=== PATIENT | male | born 1960 | race Caucasian/White ===

== ENCOUNTER 2019-09-13 15:29 | Emergency (ER) | payer BC, SELFPAY ==
--- NOTE | ~2019-09-13 | XR_ITS ---
EXAMINATION: XR finger 1st RT min 2V EXAM DATE: 09/13/2019 15:55 INDICATION: Initial encounter following injury, with pain of the right thumb. TECHNIQUE: Right 1st finger frontal, lateral and oblique projections obtained and reviewed. Correlat ion is made to right hand exam from 02/24/2018. FINDINGS: There are no acute right 1st finger fractures or dislocations identified. There is no subc utaneous gas. The soft tissue is unremarkable. There are no radiopaque foreign bodies. IMPRESSION: No acute osseous findings. Reviewed, dictated and finalized at location B. IMPRESSION: No acute osseous findings.
--- NOTE | 2019-09-13 15:38 | ED.GENADULT ---
HPI - General Adult General Chief complaint: Wound/Laceration Stated complaint: laceration Time Seen by Provider: 09/13/19 15:45 Source: patient Mode of arrival: ambulatory Limitations: no limitations History of Present Illness HPI narrative: 59-year-old male patient presents to the [facility] with complaints of a laceration to the right thumb. Patient states he was trying to jump a 100 gallon water trough and states that he smashed his thumb in between the trough and a fire hydrant. Patient states he does have pain with movement to the right thumb. Patient is right-hand dominant. Patient states he did cut his thumb. Patient unaware of when his last tetanus shot was. Denies any numbness or tingling at this time. Related Data Home Medications Medication Instructions Recorded Confirmed tamsulosin 0.4 mg capsule 0.4 mg PO DAILY 02/06/19 09/13/19 Allergies Allergy/AdvReac Type Severity Reaction Status Date / Time Sulfa (Sulfonamide Allergy Severe JOINT PAIN Verified 09/13/19 15:46 Antibiotics) erythromycin base Allergy Unknown hives Verified 09/13/19 15:46 trimethoprim Allergy Unknown Unknown Verified 09/13/19 15:46 Review of Systems Review of Systems: Narrative: CONSTITUTIONAL: Denies fever, chills, or sweats. EYES: Denies visual changes, redness, or discharge. ENT: Denies rhinorrhea, congestion, sore throat, or otalgia. CARDIOVASCULAR: Denies chest pain, palpitations, or edema. RESPIRATORY: Denies cough or dyspnea. GASTROINTESTINAL: Denies abdominal pain, nausea, vomiting, or diarrhea. GENITOURINARY: Denies dysuria or hematuria. SKIN: Denies rash or itching. MUSCULOSKELETAL: Denies back pain, joint pain, or myalgia. Positive laceration over right thumb with pain to the right thumb with movement NEUROLOGIC: Denies headache, numbness, or weakness. PSYCHIATRIC: Denies anxiety or depression. FORMERLY [facility] Past Medical History Medical History Osteoarthritis of right knee Surgical History Surgical History H/O knee surgery (~08/27/08) History of foot surgery (~05/12/16) History of hernia surgery (~05/08/05) Vasectomy status (~03/31/10) Family History Family History Father Malignant neoplasm of prostate Hypertension Family history of coronary artery disease Grandparent Family history of lung cancer Other Family history of arthritis Family history of malignant neoplasm Social History Social History Smoking status: Never smoker Alcohol intake: current Drinks per week: 7 Substance use: never Substance use type: does not use Gender identity (if verbalized by the patient): Male Comments At the time of my signature I agree with nursing past medical history, surgical, social, and family history. There is no relevant family history pertinent to the presenting complaint. Exam Narrative: Exam Narrative: GENERAL: Well-appearing, well-nourished, and in no acute distress. HEAD: Normocephalic, atraumatic. EYES: PERRLA and EOMI. ENT: Nares clear, no rhinorrhea or epistaxis. Mucous membranes moist. NECK: Supple. No lymphadenopathy CHEST: Clear to auscultation. No respiratory distress. HEART: Regular rate and rhythm. No murmur heard. Normal peripheral pulses. ABDOMEN: Soft, nontender, nondistended, normal active bowel sounds. EXTREMITIES: The R hand is without obvious asymmetry or deformity when compared to the L hand. No swelling, erythema, atrophy, or obvious deformity. Patient has approximately very centimeter laceration over the DIP joint of the right thumb. Bleeding is controlled. Normal cascade of fingers. Normal flexion and extension of fingers. FDS and FDP intact aganist restistance. No focal fullness, thobbing pain, swelling of right thumb over the DIP joint. tenderness to palpation.
[2019-09-13 15:42] VITALS: BP 157/87; PULSE 98; RESP 16; TEMP 37.3; O2SAT 99
[2019-09-13] MEDS: TETANUS,DIPHTHERIA,AC PERTUSSIS ADULT (0.5 ML) BOOSTRIX IM (15:58)
== END 2019-09-13 16:52 | disposition home or self-care (01) ==
PROVIDERS: Emergency Provider Nurse Practitioner Family; PCP Family Medicine
DX: S61.011A Laceration without foreign body of right thumb without damage to nail, initial encounter (principal); M17.11 Unilateral primary osteoarthritis, right knee; R03.0 Elevated blood-pressure reading, without diagnosis of hypertension; Z23 Encounter for immunization; W23.1XXA Caught, crushed, jammed, or pinched between stationary objects, initial encounter
CPT/HCPCS: 12002; 73140; 90471; 90715; 99213; G0463

== ENCOUNTER 2019-10-03 00:58 | Outpatient (CLI) | payer BC, SELFPAY ==
[2019-10-03 19:25] LABS: SARS-CoV-2 RNA PCR Negative
== END 2019-10-03 00:59 | disposition home or self-care (01) ==
LOC: ANHCOVIDDT 00:59
PROVIDERS: PCP Family Medicine; Visit Provider Internal Medicine Gastroenterology
DX: Z01.812 Encounter for preprocedural laboratory examination (principal); Z11.59 Encounter for screening for other viral diseases
CPT/HCPCS: 87635; C9803; U0003

== ENCOUNTER 2019-10-05 01:00 | Day surgery (SDC) | payer BC, SELFPAY ==
[2019-09-27 14:15] VITALS: BMI 27.3
[2019-10-05 06:14] VITALS: BP 134/86; PULSE 67; RESP 18; TEMP 36.6; O2SAT 100
[2019-10-05] MEDS: LACTATED RINGERS 1,000 ML 150 ML IV CONT (06:31)
--- NOTE | 2019-10-05 06:41 | WPDANESEPPF ---
Anes - Initial Pre Proc Eval Procedure: Operation Date: 10/05/19 07:30 Proposed Procedures p Screening Colonoscopy - Lupillo Pineda MD Date/Time: 10/05/19 06:41 Surgeon: Lupillo Pineda MD Pre Op Diagnosis: Hx Colon Polyps Patient Data Age: 59 Gender: M Height: 5 ft 9 in Weight: 85.2 kg Last Vital Signs Temp 36.6 C 10/05/19 06:14 Pulse 67 10/05/19 06:14 Resp 18 10/05/19 06:14 BP 134/86 10/05/19 06:14 Pulse Ox 100 10/05/19 06:14 Allergies Allergy/AdvReac Type Severity Reaction Status Date / Time Sulfa (Sulfonamide Allergy Severe JOINT PAIN Verified 10/05/19 06:20 Antibiotics) erythromycin base Allergy Unknown hives Verified 10/05/19 06:20 trimethoprim Allergy Unknown Unknown Verified 10/05/19 06:20 Home Medications Medication Instructions Recorded Confirmed Type tamsulosin 0.4 mg capsule 0.4 mg PO HS 02/06/19 10/05/19 History etjjkyii-bidbu-nesku-CF borate 1 tablet PO DAILY 09/27/19 10/05/19 History [[employer] [facility]] loratadine [Claritin] 10 mg PO DAILY 09/27/19 10/05/19 History hiaclhnj-txz-YA-lycopen-lutein 1 tablet PO DAILY 09/27/19 10/05/19 History [Centrum Silver Men] rabeprazole 20 mg PO DAILY 09/27/19 10/05/19 History Patient hx anesthesia problems: none Family hx anesthesia problems: none PMFSH Past Medical History Medical History Osteoarthritis of right knee Surgical History Surgical History H/O knee surgery (~08/27/08) History of foot surgery (~05/12/16) History of hernia surgery (~05/08/05) Vasectomy status (~03/31/10) Family History Family History Father Malignant neoplasm of prostate Hypertension Family history of coronary artery disease Grandparent Family history of lung cancer Other Family history of arthritis Family history of malignant neoplasm Social History Social History Smoking status: Never smoker Alcohol intake: current Drinks per week: 7 Substance use: never Substance use type: does not use Gender identity (if verbalized by the patient): Male Anes - Eval Final PreProcedure Day of Procedure 10/05/19 06:41 Patient weight: normal Heart: regular rate and rhythm Lungs: clear to auscultation Airway: Mallampati scale class II Neurological: alert and oriented Last oral intake: >/= 8 hours ASA classification: II Emergent: no Anesthetic plan: proceed Anesthesia type and monitoring: general GIVS and standard monitoring Informed Consent: The patient's anesthetic plan and its attendant risks and benefits were discussed with the patient/family/POA. Questions were solicited and answers provided to the satisfaction of the patient/family/POA.
--- NOTE | 2019-10-05 06:55 | P.HP_ITS ---
History of Present Illness History of Present Illness Consent: Risks, benefits, and alternatives have been discussed and questions answered. Patient agrees to proceed with procedure. Chief complaint: Hx Colon Polyps Narrative: Geo Jamison is a 59 year old W male For for screening colonoscopy. Patient has history of colonic polyps and his last colonoscopy was 5 years ago. History of colon polyps in his brother patient is asymptomatic. History of esophagitis with gastroscopy approximately a year ago. [facility] Past Medical History Medical History Osteoarthritis of right knee Surgical History Surgical History H/O knee surgery (~08/27/08) History of foot surgery (~05/12/16) History of hernia surgery (~05/08/05) Vasectomy status (~03/31/10) Family History Family History Father Malignant neoplasm of prostate Hypertension Family history of coronary artery disease Grandparent Family history of lung cancer Other Family history of arthritis Family history of malignant neoplasm Social History Social History Smoking status: Never smoker Alcohol intake: current Drinks per week: 7 Substance use: never Substance use type: does not use Gender identity (if verbalized by the patient): Male Meds Home Medications and Allergies Home Medications Medication Instructions Recorded Confirmed Type tamsulosin 0.4 mg capsule 0.4 mg PO HS 02/06/19 10/05/19 History wyfayxki-tpqic-wsloz-CF borate 1 tablet PO DAILY 09/27/19 10/05/19 History [[employer]] loratadine [Claritin] 10 mg PO DAILY 09/27/19 10/05/19 History lnahyrtu-bvf-WR-lycopen-lutein 1 tablet PO DAILY 09/27/19 10/05/19 History [Centrum Silver Men] rabeprazole 20 mg PO DAILY 09/27/19 10/05/19 History Allergies Allergy/AdvReac Type Severity Reaction Status Date / Time Sulfa (Sulfonamide Allergy Severe JOINT PAIN Verified 10/05/19 06:20 Antibiotics) erythromycin base Allergy Unknown hives Verified 10/05/19 06:20 trimethoprim Allergy Unknown Unknown Verified 10/05/19 06:20 Vital Signs Vital Signs - 24 hr 10/05/19 06:14 Temperature 36.6 C Pulse Rate 67 Respiratory Rate 18 Blood Pressure 134/86 Pulse Oximetry 100 Exam Const: Orientation/consciousness: patient oriented x3 Resp: Auscultation: clear to auscultation bilaterally Cardio: Rate: regular rate Rhythm: regular rhythm Heart sounds: no murmurs GI: GI Palp: Yes Soft to palpation, No Tenderness to palpation present (GI), Yes No hepatosplenomegaly present and No Palpable mass present Auscultation: normal bowel sounds Neuro: General: patient oriented x3 and no focal motor deficits Extrem: General: no pedal edema Assessment and Plan Additional Plan Colonoscopy for evaluation of history of colonic polyps
[2019-10-05 07:38] VITALS: BP 111/77; PULSE 70; RESP 24; O2SAT 98
[2019-10-05 07:48] VITALS: BP 112/77; PULSE 63; RESP 21; O2SAT 98
[2019-10-05 07:58] VITALS: BP 121/78; PULSE 61; RESP 20; O2SAT 100
== END 2019-10-05 08:19 | disposition home or self-care (01) ==
PROVIDERS: PCP Family Medicine; Visit Provider Internal Medicine Gastroenterology
PROC: 0DJD8ZZ Inspection of Lower Intestinal Tract, Via Natural or Artificial Opening Endoscopic (ICD-10-PCS; CPT 45378; principal; 2019-10-05 07:30)
DX: Z12.11 Encounter for screening for malignant neoplasm of colon (principal); K57.30 Diverticulosis of large intestine without perforation or abscess without bleeding; K64.8 Other hemorrhoids; K64.4 Residual hemorrhoidal skin tags; Z86.010 Personal history of colon polyps; Z83.71 Family history of colonic polyps
CPT/HCPCS: 45378; J2704; J7120

== ENCOUNTER 2021-10-29 09:38 | Outpatient (CLI) | payer BC, SELFPAY ==
--- NOTE | ~2021-10-29 | CT_ITS ---
EXAMINATION: CT LE RT wo con DATE: 10/29/2021 10:24 INDICATION: Unilateral primary osteoarthritis of the right knee for preoperative planning. TECHNIQUE: High resolution computed tomography (CT) of the right lower limb from the hip through the ankle was performed without intravenous contrast. Additional sagittal and coronal reconstructions wer e performed. Automated exposure control and iterative reconstruction technique were employed. The dos e-length product was 1632.59 mGy-cm. COMPARISON: Right knee radiographs dated 08/18/2021 FINDINGS: Bone alignment is normal. No fracture. Tricompartmental osteoarthritis at the right knee with severe joint space narrowing and degenerative subchondral changes in the medial compartment including small central osteophytes along the anterior weightbearing medial femoral condyle. Small marginal osteophyt es in the lateral compartment. Small central osteophytes and subarticular cystic changes at the higgins la and lateral trochlea indicating additional high-grade chondral malacia in the patellofemoral toshia rtment. Moderate-sized right knee joint effusion. Small heterotopic ossicle versus loose osteochondra l body posterior margin of the distal posterior cruciate ligament. Additional mild polyarticular oste oarthritis at the right hip, ankle and subtalar joints. Soft tissues are unremarkable. IMPRESSION: 1. Tricompartmental osteoarthritis at the right knee, severe in the medial compartment and with likel y high-grade chondral malacia in the patellofemoral compartment. Reviewed, dictated and finalized at location A. IMPRESSION: 1. Tricompartmental osteoarthritis at the right knee, severe in the medial comp artment and with likely high-grade chondral malacia in the patellofemoral toshia rtment.
== END 2021-10-29 09:39 | disposition home or self-care (01) ==
PROVIDERS: PCP Family Medicine; Visit Provider Orthopaedic Surgery
DX: M17.31 Unilateral post-traumatic osteoarthritis, right knee (principal)
CPT/HCPCS: 73700

== ENCOUNTER 2022-01-05 11:40 | Outpatient (CLI) | payer BC, SELFPAY ==
--- NOTE | 2022-01-05 12:36 | ECG_ITS ---
Measurements Intervals [place] Rate: 61 P: 32 UT: 179 QRS: -24 QRSD: 130 T: 22 QT: 348 QTc: 351 Interpretive Statements SINUS RHYTHM BASELINE ARTIFACT RIGHT BUNDLE BRANCH BLOCK ABNORMAL ECG COMPARED TO ECG 05/30/2018 17:16:57 RIGHT BUNDLE-BRANCH BLOCK NOW PRESENT Electronically Signed On 01-05-2022 16:22:56 CDT by Red Marr M.D.
[2022-01-05 14:00] LABS: Basophils Absolute Auto 0.1 K/mm3 (0.0-0.1); Basophils Percent Auto 0.7 % (0.2-1.2); Eosinophils Absolute Auto 0.1 K/mm3 (0-0.3); Eosinophils Percent Auto 1.2 % (0-4.4); Hematocrit 39.8 % (42.0-52.0); Hemoglobin 14.8 g/dL (14.0-18.0); Immature Granulocyte Absolute 0.03 K/mm3 (0.00-0.031); Immature Granulocyte Percent A 0.4 % (0-0.5); Lymphocytes Absolute Auto 1.57 K/mm3 (0.9-3.2); Lymphocytes Percent Auto 20.8 % (18.3-44.2); Mean Corpuscular HGB Conc 37.2 g/dl (32-36); Mean Corpuscular Hemoglobin 32.4 pg (26-34); Mean Corpuscular Volume 87.1 fl (80-100); Mean Platelet Volume 8.7 fl (7.4-10.4); Monocytes Absolute Auto 0.4 K/mm3 (0.1-0.6); Neutrophils Absolute Auto 5.4 K/mm3 (1.3-6.7); Neutrophils Percent Auto 71.9 % (45.5-73.1); Platelet Count Result 230 k/mm3 (150-375); Red Blood Count 4.57 M/mm3 (4.6-6.20); Red Cell Distribution Width 12.5 % (11.5-14.5); White Blood Count 7.5 K/mm3 (4.5-10.0)
[2022-01-05 14:13] LABS: Albumin Level 4.5 g/dL (3.5-5.1); Estimated Glomerular Filt Rate > 60; Glucose 91 mg/dL (65-110)
[2022-01-05 14:16] LABS: Urine Cotinine NEGATIVE
[2022-01-05 14:22] LABS: Hemoglobin A1C 4.5 % (<5.7)
== END 2022-01-05 11:41 | disposition home or self-care (01) ==
LOC: ANHSURGERY 11:44
PROVIDERS: PCP Family Medicine; Visit Provider Orthopaedic Surgery
DX: M17.11 Unilateral primary osteoarthritis, right knee (principal); Z01.818 Encounter for other preprocedural examination; I45.10 Unspecified right bundle-branch block
CPT/HCPCS: 80307; 82040; 82565; 82947; 83036; 85025; 87081; 93005

== ENCOUNTER 2022-02-03 01:09 | Day surgery (SDC) | payer BC, SELFPAY ==
[2022-01-05 11:50] VITALS: BMI 28.9
--- NOTE | 2022-01-05 12:18 | PC.NURSE ---
Report to the Outpatient Waiting Room, entrance under the green pavilion located off [facility], at time _0600 on date _02/03/22 . Planned Procedure Time: __07 . Time changes happen often and if your time is changed the preop area will call you the afternoon before. - You and your visitor will be asked to self-screen and do not enter if you have any COVID symptoms. - We encourage only one visitor and NO visitors under age 16 are allowed at this time. Your visitor will receive communication by the phone number that is given day of service. - The patient visitor is requested to social distance or may leave the building when not with patient due to restrictions. - A mask is required within the hospital. Patients may have clear liquids (water, carbonated beverages, clear teas, apple juice) until 3 hours prior to surgery with a maximum of 20 ounces. - No food from midnight until time of surgery - Infants may have breast milk until 4 hours before surgery, formula 6 hours prior to surgery. - Children will be allowed to drink immediately following surgery. If applicable, please bring a bottle or sippy cup to assist with drinking. Juice, water, soda, and popsicles are readily available. For infants on formula, please bring formula the day of surgery. Pacifiers are allowed. Take the following medications with a SIP of water the morning of surgery: __FLECAINIDE Medications to discontinue per physician ___PT STATES MELOXICAM AND ALL VITAMINS AND SUPPLEMENTS 7 DAYS PRE OP PER DR WHEELER Date to take last dose___01/26/22 Please no make-up, nail maltese, hairspray, perfume, deodorant, or body powder the day of surgery. No jewelry (including any body piercings) or valuables the day of surgery, leave them at home. Please take a shower or bath the night before, or the morning of, surgery with an antibacterial soap. Wear comfortable, loose fitting clothing. Children are encouraged to wear pajamas. - Jewelry must be removed prior to entering the operating room. Rings and piercings that are not removed may be cut off. - The hospital will not accept responsibility for valuables. - Please leave all valuables, including medications, at home the day of surgery. If you are going home after surgery, a licensed front loader residential driver must drive you home. - NO public transportation without another adult. - We recommend that an adult stay with you for 24 hours following discharge. - We also recommend that you do not drive, make important decision, drink alcoholic beverages, or take any drugs that were not prescribed by your health care provider for at least 24 hours after your discharge time. For Pediatric surgeries, we recommend two adults accompany the child home. Follow any additional instructions given to you from your surgeon. If you or anyone in your household have experienced Covid symptoms in the past week, please notify your surgeon or the nurse liaison at the phone number below for possible testing. VERBAL AND WRITTEN instructions given to __PATIENT and asked if any additional questions and then verbalized understanding. Patient advised to call surgeon office or pre surgery nurse liaison [phone] if any additional questions.
[2022-01-05 12:34] VITALS: BP 130/81; PULSE 60; RESP 18; TEMP 36.8; O2SAT 99
--- NOTE | 2022-02-02 12:52 | WPDANESPNB ---
Anes - Peripheral Nerve Block Date/Time: 02/02/22 12:52 I have discussed with the patient/family/POA the placement of a peripheral nerve block for post-operative pain management, including associated risks, benefits, complications, and side effects. Alternative methods of post-operative analgesia were detailed. Questions were solicited and answers provided to the satisfaction of the patient/family/POA. Time-Out: A pre-procedural Time-Out was completed immediately before starting the procedure and confirmed: Patient Identification, Site, Procedure, Patient Position and the Availability of Requisite Equipment. Clinical Indications: Acute post-operative pain management requested by the operative surgeon. Nerve Block Insertion Note Anes-nerve block: adductor canal right Patient position: supine Skin prep: chlorhexidine Needle: 22 gauge, stimulating, insulated echogenic needle. Needle length: 80 mm Technique: ultrasound Technique comment: in plane Injectate: bupivacaine 0.25% with epi 5 mcg/ml (30cc) Observations: tolerated well Complications: none Procedure start time:: 1030 Procedure end time:: 1035
--- NOTE | 2022-02-02 12:52 | WPDANESEPPF ---
Anes - Initial Pre Proc Eval Procedure: Operation Date: 02/03/22 10:30 Proposed Procedures p Custom Right Total Knee Arthroplasty - Ramsey Pugh MD Date/Time: 02/02/22 12:52 Surgeon: Rasmey Pugh MD Pre Op Diagnosis: primary oa right knee Patient Data Age: 61 Gender: M Height: 1.75 m Weight: 88.9 kg Last Vital Signs Temp 36.8 C 01/05/22 12:34 Pulse 60 01/05/22 12:34 Resp 18 01/05/22 12:34 BP 130/81 01/05/22 12:34 Pulse Ox 99 01/05/22 12:34 O2 Del Method Room Air 01/05/22 12:34 Allergies Allergy/AdvReac Type Severity Reaction Status Date / Time Sulfa (Sulfonamide Allergy Severe JOINT PAIN Verified 02/03/22 08:48 Antibiotics) erythromycin base Allergy Unknown hives Verified 02/03/22 08:48 Home Medications Medication Instructions Recorded Confirmed Type loratadine 10 mg tablet (Claritin) 10 mg PO DAILY 09/27/19 02/03/22 History fqsgoqpv-ung-ukdik acid 300 1 tablet PO DAILY 09/27/19 02/03/22 History mcg-lycopene 600 mcg-lutein 300 mcg tablet (Centrum Silver Men) metoprolol succinate 50 mg 50 mg PO DAILY 11/27/20 02/03/22 History tablet,extended release 24 hr meloxicam 15 mg tablet 15 mg PO DAILY #90 tabs 08/18/21 02/03/22 Rx rabeprazole 20 mg tablet,delayed 20 mg PO DAILY #90 tabs 11/18/21 02/03/22 Rx release hydrocortisone acetate 25 mg 25 mg RECTAL BID PRN hemorrhoids 12/01/21 02/03/22 Rx rectal suppository (Anusol-HC) #12 ea nystatin 100,000 unit/gram topical 1 applic topical TID #60 grams 12/01/21 02/03/22 Rx powder tamsulosin 0.4 mg capsule See Rx Instructions .Route 12/26/21 02/03/22 Rx .COMPLEX #180 caps flecainide 100 mg tablet 200 mg PO Q12H 01/05/22 02/03/22 History ECG: Date of Service: 01/05/22 Procedure(s): CA 12 lead EKG Accession Number(s): [id number] cc: ~ ? Measurements Intervals? [place]? Rate: ? 61 ? P:? 32 SC: ? 179? QRS:? -24 QRSD: ? 130? T:? 22 QT: ? 348? QTc:? 351? Interpretive Statements SINUS RHYTHM BASELINE ARTIFACT RIGHT BUNDLE BRANCH BLOCK ABNORMAL ECG COMPARED TO ECG 05/30/2018 17:16:57 RIGHT BUNDLE-BRANCH BLOCK NOW PRESENT Electronically Signed On 01-05-2022 16:22:56 CDT by Red Marr M.D. Patient hx anesthesia problems: none Family hx anesthesia problems: none Results Review: All pre-operative results and documents have been reviewed as part of the pre-operative evaluation. FOR[facility]LY [facility] Past Medical History Medical History (Updated 02/02/22 @ 12:52 by Corbin Alexander MD) Benign prostatic hyperplasia with lower urinary tract symptoms Chronic GERD Osteoarthritis of right knee SVT (supraventricular tachycardia) Surgical History Surgical History H/O knee surgery (~08/27/08) History of foot surgery (~05/12/16) History of hernia surgery (~05/08/05) Vasectomy status (~03/31/10) Family History Family History Father Malignant neoplasm of prostate Hypertension Family history of coronary artery disease Grandparent Family history of lung cancer Other Family history of arthritis Family history of malignant neoplasm Social History Social History Smoking status: Never smoker Second hand tobacco smoke exposure: No Additional smoking assessment comments: DENIES ANY FORM OF TOBACCO USE Alcohol intake: current Drinks per week: 12 Alcohol use details: BEER Substance use: never Substance use type: does not use Lack of Transportation: No Lack of Food: Never True Current Housing: I Have Housing Concerned About Fu
[2022-02-03] VITALS (12 sets, daily range): BP systolic 115–133; BP diastolic 67–91; PULSE 62–85; RESP 15–20; TEMP 35.9–36.6; O2SAT 95–100
--- NOTE | ~2022-02-03 | XR_ITS ---
EXAMINATION: XR knee RT 2V DATE: 02/03/2022 13:34 TRANSITIONAL CARE LIAISON INDICATION: Right total knee arthroplasty TECHNIQUE: 2 views right knee FINDINGS: There is a right total knee arthroplasty in expected position. Subcutaneous gas with fluid and air in the joint are consistent with recent surgery. No evidence of periprosthetic fracture. IMPRESSION: 1. Recent right total knee arthroplasty. Reviewed, dictated and finalized at location B. SITIONAL CARE LIAISON
[2022-02-03] MEDS: ACETAMINOPHEN 500 MG TABLET 1000 MG PO (08:44)
[2022-02-03] MEDS: LACTATED RINGERS 1,000 ML 30 ML IV CONT ×2 (09:45→13:24)
[2022-02-03] MEDS: TRANEXAMIC ACID 1,000MG/ISO100 1,000 MG/100 ML BAG 200 MG IVPB (09:57)
--- NOTE | 2022-02-03 10:06 | WPDHPUPDATE1 ---
History and Physical Update Update Date/Time: 02/03/22 10:06 History and Physical has been reviewed, including an updated exam of the patient. There are NO changes in the patient's condition. Risks, benefits, and alternatives have been discussed and questions answered. Patient agrees to proceed with procedure.
[2022-02-03] MEDS: ceFAZolin 2 GM/D5W 50 ML 2 GM/50 ML BAG IVPB ×2 (10:45→18:34)
[2022-02-03] MEDS: GENTAMICIN BONE CEMENT REFOBACIN 1 EACH TOPICAL (11:29)
[2022-02-03] MEDS: fentaNYL CITRATE INJ (*CRX) 100 MCG/2 ML VIAL 25 MCG IV PUSH ×2 (14:14→14:16)
--- NOTE | 2022-02-03 14:45 | PC.NURSE ---
This patient, Geo Jamison, was admitted to Medical Room 240-01. Patient/family oriented to hospital policies and general routines including ID bracelet, bed and alarms, visiting hours, pain management, procedures, bathroom and other care routines, personal items, smoking policy, room service/diet, and visiting hours. Information on how to activate the Rapid Response Team has been discussed. Patient/Family are encouraged to report perceived risks to care and to ask questions if they do not understand what they are told or what they should do.
[2022-02-03] MEDS: SODIUM CHLORIDE 0.9% IV 1,000 ML 125 ML IV CONT (15:01)
--- NOTE | 2022-02-03 16:06 | P.OP_ITS ---
Procedure Note - Detailed Date of Procedure 02/03/22 Pre-op Diagnosis primary oa right knee Post-op Diagnosis Same Procedure Performed Total knee arthroplasty, right. Surgeon Ramsey Pugh MD Medical Lab Technologist Venus Brooks PA-C Anesthesia General and Regional (Subsartorial block.) Findings Custom tka. Excellent bone quality. Extensive degenerative changes medially. Evidence of prior open oats procedure. PCL release. No medial release. Description of Procedure Preoperative antibiotics were given. The limb was prepped and draped in the usual sterile fashion with a well-padded tourniquet high on the thigh. The limb was exsanguinated and the tourniquet inflated to 300 mmHg. A longitudinal incision was created just medial to the patella. A trivector approach to the knee was performed. Arthrotomy was taken down through the joint capsule. No significant releases were initially taken. The femur was exposed and the F1 jig was applied. The coring tool was used to remove the cartilage for the F2 jig to sit flush with the bone. The jig was pinned and the distal cut carefully taken. Caliper measurements confirmed appropriate bony resections according to the preoperative templated plan. The F4 cutting jig for the femur was applied, at the standard rotation. The AP and anterior chamfer cuts were taken. The F5 jig was applied and the posterior chamfer cuts were taken. The tibia was prepared using the T1 jig, after removing cartilage for the jig contact points. Proper alignment was checked with the alignment dorinda. The tibia was cut using the T1u guide. Gap balancing was performed. Gap measurements were taken and the knee was trialed. Excellent alignment and soft tissue balancing was confirmed. The posterior cruciate ligament was recessed along the proximal tibia. The patella was cut for resurfacing. Three lug holes were drilled. Meniscal remnants were removed. The trial components were assembled. Excellent range of motion and proper soft tissue balancing were confirmed throughout the full range of motion. Patellar tracking was excellent. The knee was copiously irrigated periodically throughout the procedure. The real implants were cemented into position. Excess cement was carefully removed. The wound was closed in layers with interrupted #1 Vicryl suture, 2-0 strata fix suture, 0 strata fix suture, 2-0 strata fix suture. Steri-Strips placed on the skin with the knee flexed. Sterile bulky dressing applied. The patient was brought to the recovery room in stable condition. There were no complications. Physician children's nursery assistant, Venus Brooks PA-C, required for surgery; including patient positioning, draping, tissue retraction, maintaining instrument position, cement removal, wound closure, and dressing placement. Implants Conformis Custom total knee arthroplasty. Cemented. Cruciate retaining. 6B insert. 35 mm round patella. Estimated Blood Loss -200.0 Drains No Complications No immediate complications Condition Stable Disposition PACU [facility] Billing Surgery - Charge Forward: Surgery Billing
[2022-02-03] MEDS: oxyCODONE HCL (*CRX) 5 MG TAB IR PO (16:25)
[2022-02-03] MEDS: ASPIRIN 81 MG ENTERIC TABLET PO (17:47)
[2022-02-03] MEDS: FAMOTIDINE 20 MG TABLET PO (20:33)
[2022-02-03] MEDS: FLECAINIDE ACETATE 100 MG TABLET 200 MG PO (20:35)
[2022-02-03] MEDS: TAMSULOSIN HCL 0.4 MG CAPSULE 0.8 MG PO (22:11)
[2022-02-03] MEDS: METOPROLOL SUCCINATE EXT REL 50 MG TABCR PO (22:12)
[2022-02-03] MEDS: LORATADINE 10 MG TABLET PO (22:12)
[2022-02-04] MEDS: ceFAZolin 2 GM/D5W 50 ML 2 GM/50 ML BAG IVPB ×2 (01:08→09:57)
[2022-02-04 04:15] VITALS: BP 123/67; PULSE 69; RESP 18; TEMP 36.3; O2SAT 98
[2022-02-04 05:53] LABS: Basophils Percent Auto 0.2 % (0.2-1.2); Eosinophils Percent Auto 0.2 % (0-4.4); Hematocrit 34.5 % (42.0-52.0); Hemoglobin 12.2 g/dL (14.0-18.0); Immature Granulocyte Absolute 0.04 K/mm3 (0.00-0.031); Immature Granulocyte Percent A 0.5 % (0-0.5); Lymphocytes Absolute Auto 1.31 K/mm3 (0.9-3.2); Lymphocytes Percent Auto 15.8 % (18.3-44.2); Mean Corpuscular HGB Conc 35.4 g/dl (32-36); Mean Corpuscular Hemoglobin 32.7 pg (26-34); Mean Corpuscular Volume 92.5 fl (80-100); Mean Platelet Volume 9.7 fl (7.4-10.4); Monocytes Absolute Auto 0.5 K/mm3 (0.1-0.6); Monocytes Percent Auto 6.2 % (2.6-8.5); Neutrophils Absolute Auto 6.4 K/mm3 (1.3-6.7); Neutrophils Percent Auto 77.1 % (45.5-73.1); Red Blood Count 3.73 M/mm3 (4.6-6.20); Red Cell Distribution Width 12.2 % (11.5-14.5); White Blood Count 8.3 K/mm3 (4.5-10.0)
[2022-02-04 06:05] LABS: Anion Gap 7 mmol/L (8-16); Blood Urea Nitrogen 9 mg/dL (9-20); Calcium 8.2 mg/dL (8.4-10.2); Carbon Dioxide 24 mmol/L (22-30); Chloride 105 mmol/L (98-107); Estimated CRCL calculation 85 ml/min; Estimated Glomerular Filt Rate > 60; Glucose 99 mg/dL (65-110); Potassium 3.7 mmol/L (3.4-5.0); Sodium 136 mmol/L (137-145)
[2022-02-04 06:41] LABS: Platelet Estimate Adequate (Adequate); Schistocytes None Seen (NORMAL)
[2022-02-04 08:15] VITALS: BP 126/68; PULSE 70; RESP 18; TEMP 36.3; O2SAT 100
[2022-02-04] MEDS: predniSONE 5 MG TABLET PO (09:03)
[2022-02-04] MEDS: SENNA/DOCUSATE SODIUM TABLET 2 TAB PO (09:04)
[2022-02-04] MEDS: ASPIRIN 81 MG ENTERIC TABLET PO (09:04)
[2022-02-04] MEDS: FAMOTIDINE 20 MG TABLET PO (09:04)
[2022-02-04 09:05] VITALS: PULSE 60
[2022-02-04] MEDS: FLECAINIDE ACETATE 100 MG TABLET PO (09:05)
[2022-02-04] MEDS: MELOXICAM 7.5 MG TABLET 15 MG PO (09:06)
[2022-02-04] MEDS: polyethylene glycoL 3350 17 GM POWD.PACK PO (09:07)
--- NOTE | 2022-02-04 09:45 | PM.DS ---
DS: Admitting Diagnosis Discharge Date 02/04/22 Admitting Diagnosis OA knee Right DS: Discharge Diagnosis Discharge Diagnosis (1) Status post total right knee replacement: Code(s): Z96.651 - Presence of right artificial knee joint Status: Acute Assessment and Plan: Postop day 1: Right total knee arthroplasty. Patient tolerated procedure well. No complications. Pain manageable with pain medication. No numbness or tingling. We had a lengthy discussion regarding postoperative wound care, limitations, expectations, and exercises. Patient shows good understanding. He has had initial physical therapy and is tolerating it well. DVT prophylaxis: 81 mg baby aspirin b.i.d. for 14 days. Pain medication: Percocet. Meloxicam. Prednisone. Patient has followup appointment with Dr. Pugh in 3 weeks. DS: Summary Hospital Course Reason for hospitalization: Total knee arthroplasty Hospital Course: Patient tolerated procedure well. Has had initial PT/OT. No complications. Pain well managed. Status at Discharge Functional status at discharge: uses cane/walker Overall status at discharge: patient is progressing back to baseline Time Spent with Patient Time attestation: Total time spent providing and/or coordinating discharge services: Exam Narrative: Normal weight Male. Resting comfortably in chair. No acute distress. A&O x3. Wearing compression socks bilaterally. Dressing intact with no drainage. Moderate swelling. Small area of ecchymosis. No erythema. No hematoma. Good early range of motion. Calf nontender. Neurologic status intact. No varicosities. Distal pulses palpable. DS: Data Data Completed and Pending Labs on day of discharge: Labs from last 24 hours 02/04/22 02/04/22 02/03/22 05:00 05:00 09:43 WBC 8.3 RBC 3.73 L Hgb 12.2 L Hct 34.5 L MCV 92.5 MCH 32.7 MCHC 35.4 RDW 12.2 Plt Count TNP MPV 9.7 Immature Gran % (Auto) 0.5 Neut % (Auto) 77.1 H Lymph % (Auto) 15.8 L [place] % (Auto) 6.2 Eos % (Auto) 0.2 Baso % (Auto) 0.2 Lymph # (Auto) 1.31 [place] # (Auto) 0.5 Eos # (Auto) 0.0 Baso # (Auto) 0.0 Abs Immat Gran (auto) 0.04 H Absolute Neuts (auto) 6.4 Absolute Nucleated RBC 0.0 Nucleated RBC % 0.0 Platelet Estimate Adequate % Immature Plt Fraction TNP Schistocytes None seen Sodium 136 L Potassium 3.7 Chloride 105 Carbon Dioxide 24 Anion Gap 7 L BUN 9 Creatinine 0.80 Estim Creat Clear Calc 85 Estimated GFR > 60 Glucose 99 Calcium 8.2 L Blood Type O Positive Antibody Screen Negative Discharge Plan Discharge Patient Disposition: Home, Self-Care Discharge Instructions: See green instruction sheets Stand Alone Forms: General Discharge Instructions Follow-up/Referrals: Venus Brooks PA [Physician [employer]ting [employer] Operator] - Discharge Medications: New prednisone 5 mg tablet 5 mg PO DAILY 21 Days Qty: 21 0RF aspirin 81 mg tablet,delayed release (DR/EC) 81 mg PO BID 14 Days Qty: 28 0RF oxycodone-acetaminophen 5-325 mg tablet 1 - 2 tablet PO Q4-6H MDD 6 PRN (Reason: pain) Qty: 30 0RF Continued metoprolol succinate 50 mg tablet extended release 24 hr 50 mg PO DAILY Label Comments: TAKES AT HS flecainide 100 mg tablet 200 mg PO Q12H Label Comments: TAKES 100MG BID hydrocortisone acetate [Anusol-HC] 25 mg suppository 25 mg RECTAL BID PRN (Reason: hemorrhoids) Qty: 12 0RF nystatin 100,000 unit/gram powder 1 applic topical TID Qty: 60 1RF Label Comments: TAKES PRN meloxicam 15 mg tablet 15 mg PO DAILY Qty: 90 2RF Label Comments: TAKES AT QPM loratadine [Claritin] 10 mg Tablet 10 mg PO DAILY Label Comments: TAKES AT HS Centrum Silver Men 300-600-300 mcg Tablet 1 tablet PO DAILY Label Comments: TAKES AT HS rabeprazole 20 mg tablet,nico
[2022-02-04] MEDS: PANTOPRAZOLE 40 MG TABLET PO (09:57)
== END 2022-02-04 11:54 | disposition home or self-care (01) ==
LOC: ANHSURGERY 08:38 → ANH2MED 14:32
PROVIDERS: Physician Assistant Surgical; PCP Family Medicine; Visit Provider Orthopaedic Surgery
PROC: (CPT 27447; principal; 2022-02-03 10:30)
DX: M17.11 Unilateral primary osteoarthritis, right knee (principal); G89.18 Other acute postprocedural pain; K21.9 Gastro-esophageal reflux disease without esophagitis; N40.1 Benign prostatic hyperplasia with lower urinary tract symptoms; I47.1 Supraventricular tachycardia
CPT/HCPCS: 27447; 64447; 36415; 73560; 80048; 85025; 85055; 86850; 86900; 86901; 97110; 97161; 97165; A9270; C1713; C1776; J0131; J0171; J0690; J1100; J1170; J1885; J2250; J2270; J2405; J2704; J2795; J3010; J7030; J7120; J7512